=== PATIENT | male | born 1955 | race Caucasian/White ===

== ENCOUNTER → 2017-09-02 | Outpatient (CLI) | payer MEDICARE, OTHER ==
[2016-08-26 17:52] VITALS: BP 114/67
[~2017-09-02] MED LIST: ATOR40TA59 PO; CLON1TAB3 PO; CLON2TAB PO; CYCL10TA2 PO; DIPH25CA3 PO; DIVA500T2 PO; DIVA500T4 PO; GLIP5TAB10 PO; IOHEXOL 240 MG/ML 50ML VIAL. PO ONE; IOHEXOL 300 MG/ML 75 ML VIAL IV ONE; LACT1CAP29 PO; LACT1CAP6 PO; METF-620 PO; OMEP20TA8 PO; OMEP40CA2 PO; PREG150C PO; PROC10TA57 PO; SIMV20TA3 PO; TRAZ150T49 PO
--- NOTE | 2017-09-02 13:58 | RAD ---
Indication: Rectal cancer Technique: Axial images and coronal and sagittal reformatted images are provided. Oral contrast and 75 mL of intravenous Omnipaque 300 was administered without complication. Comparison CT is from November 14, 2016. Comparison abdomen and pelvis is from October 29, 2015. One or more of the following individualized dose reduction techniques were utilized for this examination: 1. Automated exposure control 2. Adjustment of the mA and/or kV according to patient size 3. Use of iterative reconstruction technique Findings: Chest: There is minimal apical emphysema. There are new groundglass nodules noted in the right lung of the 4 mm in size, for example images 18 and 27. In addition to these groundglass nodules there are additional more diffuse areas of groundglass opacity in the right upper lobe and in the left lingula and lower lobe. There is no consolidation. There is no pleural effusion. Central airways are patent. There is atheromatous disease in the thoracic aorta with 30% left subclavian osteal narrowing suspected. Heart is not enlarged. Coronary artery calcifications are noted. There is no hilar or mediastinal adenopathy. There are degenerative changes in the spine. Abdomen: There is fatty infiltration of the liver. Gallbladder is unremarkable. Spleen is not enlarged. Pancreas is not well evaluated, grossly unremarkable. There is no adrenal mass. There is atheromatous disease in the abdominal aorta without aneurysm. Kidneys are symmetrically perfused. There is no hilar or mediastinal adenopathy. There is no small bowel obstruction or mural thickening. There is a left lower quadrant ostomy, correlate with procedural history. Rectosigmoid colon has been resected. No mesenteric or retroperitoneal adenopathy is apparent. Bladder is unremarkable. There are calcified phleboliths. There is no free pelvic fluid. There are degenerative changes in the spine with mild dextrocurvature. There is no pelvic adenopathy. Impression: Chest: 1. Nonspecific groundglass nodules, most likely inflammatory or infectious in etiology. Metastasis cannot be excluded. Per [employer], 3 month follow-up is recommended. 2. Otherwise no evidence of metastatic disease within the chest. Abdomen/pelvis: 1. No evidence of metastatic disease. 2. Postsurgical changes of partial colectomy with left lower quadrant ostomy.
== END | disposition home or self-care (01) ==
LOC: CT 08:39
PROVIDERS: ATTEND Internal Medicine Hematology & Oncology
DX: C20 Malignant neoplasm of rectum (principal); M79.89 Other specified soft tissue disorders; E11.9 Type 2 diabetes mellitus without complications; R06.02 Shortness of breath; Z87.891 Personal history of nicotine dependence
CPT/HCPCS: 71260; 74177; Q9966; Q9967